=== PATIENT | male | born 1940 | race American Indian/Alaskan Native ===

== ENCOUNTER 2020-03-08 07:55 | Day surgery (SDC) | payer MEDICARE ==
[~2020-03-08 07:55] MED LIST: ACETAMINOPHEN 500 MG TAB PO SCH
[2020-03-08 09:37] LABS: Basophils # (Auto) 0.1 K/mm3 (0.0-0.1); Eosinophils # (Auto) 0.2 K/mm3 (0.0-0.4); Eosinophils % (Auto) 1.9 % (0.0-4.3); Hematocrit 38.6 % (35.5-45.6); Hemoglobin 13.3 gm/dl (11.8-15.2); Lymphocytes # (Auto) 2.2 K/mm3 (1.2-5.4); Lymphocytes % (Auto) 24.7 % (13.4-35.0); Mean Corpuscular HGB Conc 35 % (32-34); Mean Corpuscular Volume 97 fl (84-94); Monocytes # (Auto) 0.5 K/mm3 (0.0-0.8); Monocytes % (Auto) 6.2 % (0.0-7.3); Platelet Count 220 K/mm3 (140-440); Red Blood Count 3.99 M/mm3 (3.65-5.03); Red Cell Distribution Width 14.8 % (13.2-15.2)
--- NOTE | 2020-03-08 09:40 | Emergency Department Report ---
ED Male HPI - General Chief complaint: Urogenital-Male Stated complaint: PROBLEM W/PENIS Time Seen by Provider: 03/08/20 08:55 Source: patient Mode of arrival: Ambulatory Limitations: No Limitations - History of Present Illness Initial comments: Patient is 79 years old male with history of hypertension and benign prostatic hypertrophy. Patient presented to the ER complaining of swelling around his penis for the last 2 weeks getting worse in the last few days. Patient is an circumcised. Patient is complaining of pain around the glans. Patient denied any dysuria, fever, chills. MD Complaint: other (penile swelling) - Related Data Allergies Allergy/AdvReac Type Severity Reaction Status Date / Time No Known Allergies Allergy Unverified 03/08/20 08:00 ED Review of Systems ROS: Stated complaint: PROBLEM W/PENIS Other details as noted in HPI Comment: All other systems reviewed and negative Constitutional: denies: chills, fever Respiratory: denies: cough, shortness of breath, SOB with exertion Cardiovascular: denies: chest pain, palpitations Genitourinary: denies: dysuria ED Past Medical Hx - Past Medical History Previous Medical History?: Yes Hx Hypertension: Yes - Surgical History Past Surgical History?: Yes Additional Surgical History: surgery on penis. cataract - Social History Smoking Status: Current Every Day Smoker Substance Use Type: None ED Physical Exam - General Limitations: No Limitations General appearance: alert, in no apparent distress - Head Head exam: Present: atraumatic, normocephalic, normal inspection - ENT ENT exam: Present: normal exam, normal orophraynx, mucous membranes moist - Neck Neck exam: Present: normal inspection. Absent: tenderness, meningismus - Respiratory Respiratory exam: Present: normal lung sounds bilaterally - Cardiovascular Cardiovascular Exam: Present: regular rate, normal rhythm, normal heart sounds - GI/Abdominal GI/Abdominal exam: Present: soft, normal bowel sounds. Absent: distended, tenderness, guarding, rebound, rigid, mass, bruit, pulsatile mass, hernia - External exam: Present: erythema, swelling, lesions, other (Patient with significant paraphimosis and ulceration around the glans with mild greenish discharge.) ED Course Vital Signs 03/08/20 03/08/20 08:00 09:07 Temperature 98.2 F Pulse Rate 82 Respiratory 16 18 Rate Blood Pressure 136/82 [Right] O2 Sat by Pulse 96 100 Oximetry ED Medical Decision Making - Medical Decision Making Patient is 79 years old male with history of hypertension and benign prostatic hypertrophy. Patient presented to the ER complaining of swelling around his penis for the last 2 weeks getting worse in the last few days. Patient is an circumcised. Patient is complaining of pain around the glans. Patient denied any dysuria, fever, chills. I discussed the patient with Dr. Bower who came to examine the patient in the emergency room. He stated that he is taking patient to surgery. Critical care attestation.: If time is entered above; I have spent that time in minutes in the direct care of this critically ill patient, excluding procedure time. ED Disposition Clinical Impression: Paraphimosis Disposition: [id number] OP ADMIT IP TO THIS HOSP Is pt being admited?: Yes Condition: Stable
[2020-03-08 09:54] LABS: INR 1.1 (0.87-1.13)
[2020-03-08 09:55] LABS: Partial Thromboplastin Time 30.8 Sec. (24.2-36.6)
[2020-03-08] MEDS ORDERED: ALBUTEROL 2.5 MG/3 ML NEBU IH NR (10:10)
--- NOTE | 2020-03-08 10:12 | Anesthesia Consultation ---
Anesthesia Consult and Med Hx Date of service: 03/08/20 - Airway Anesthetic Teeth Evaluation: Poor (multiple missing and broken teeth with evidence of significant decay. Denies loose teeth.) ROM Head & Neck: Adequate Mental/Hyoid Distance: Adequate Mallampati Class: Class II Intubation Access Assessment: Probably Good - Pulmonary Exam CTA: No (mild scattered wheezing) - Cardiac Exam Cardiac Exam: RRR - Pre-Operative Health Status ASA Pre-Surgery Classification: ASA3, Emergency Proposed Anesthetic Plan: General - Pulmonary Hx Smoking: Yes (1/2PPD) Hx Respiratory Symptoms: Yes (occasional wheezing per patient; no rx for inhalers) SOB: No - Cardiovascular System Hx Hypertension: Yes Hx Heart Attack/AMI: No (>4mets functional capacity) Hx Percutaneous Transluminal Coronary Angioplasty (PTCA): No Hx Cardia Arrhythmia: No - Central Nervous System CVA: No - Gastrointestinal Hx Gastroesophageal Reflux Disease: No - Endocrine Hx Renal Disease: No Hx Liver Disease: No Hx Insulin Dependent Diabetes: No Hx Non-Insulin Dependent Diabetes: No Hx Thyroid Disease: No - Other Systems Hx Obesity: No - Additional Comments Anesthesia Medical History Comments: No hx anesthetic complications. Will give albuterol neb in preop.
[2020-03-08] MEDS ORDERED: fentaNYL 100 MCG/2 ML INJ IV PRN (10:13)
[2020-03-08] MEDS ORDERED: ONDANSETRON 4 MG/2 ML INJ IV PRN (10:13)
--- NOTE | 2020-03-08 10:13 | Anesthesia Day of Surgery ---
Anesthesia Day of Surgery - Day of Surgery Patient Examined: Yes Patient H&P Reviewed: Yes Patient is NPO: Yes
[2020-03-08] MEDS ORDERED: LACTATED RINGERS 1,000 ML ONE ×2 (10:17→12:15)
[2020-03-08] MEDS ORDERED: ACETAMINOPHEN 500 MG TAB ONE (10:17)
[2020-03-08] MEDS ORDERED: ALBUTEROL 2.5 MG/3 ML NEBU IH ONE (10:18)
[2020-03-08] MEDS ORDERED: BUPIVACAINE/PF (0.25%) 2.5 MG/ML 10 ML VIAL INFILTRATI ONE ×2 (10:25→11:33)
[2020-03-08] MEDS ORDERED: NEOMY 3.5 MG/BACIT 400 UNITS/POLY B 5000 UNITS OINT 15 GM TP ONE ×2 (10:26→11:33)
[2020-03-08 10:31] LABS: BUN/Creatinine Ratio 15; Blood Urea Nitrogen 19 mg/dL (9-20); Calcium 10.3 mg/dL (8.4-10.2); Hemolysis Index 4
[2020-03-08] MEDS ORDERED: SODIUM CHLORIDE P/F VIAL 10 ML 10 ML ONE (10:42)
[2020-03-08] MEDS ORDERED: BACITRACIN 50,000 UNIT VIAL ONE (10:43)
[2020-03-08] MEDS ORDERED: ceFAZolin/STERILE WATER 2 GM/20 ML SYRINGE IV NR (11:00)
[2020-03-08] MEDS ORDERED: propofoL 200 MG/20 ML VIAL IV ONE (11:03)
[2020-03-08] MEDS ORDERED: MIDAZOLAM 2 MG/2 ML INJ ONE (11:07)
[2020-03-08] MEDS ORDERED: fentaNYL 100 MCG/2 ML INJ ONE (11:07)
[2020-03-08] MEDS ORDERED: ePHEDrine SULFATE 50 MG/1 ML INJ ONE (11:21)
[2020-03-08] MEDS ORDERED: LACTATED RINGERS 1,000 ML IV SCH (11:30)
[2020-03-08] MEDS ORDERED: KETOROLAC 30 MG/1 ML INJ ONE (11:31)
[2020-03-08] MEDS ORDERED: ONDANSETRON 4 MG/2 ML INJ ONE (11:31)
[2020-03-08] MEDS ORDERED: SODIUM CHLORIDE 0.9% IRR 1,500 ML BOTTLE IR ONE (11:34)
[2020-03-08] MEDS ORDERED: BACITRACIN 50,000 UNIT VIAL IR ONE (11:40)
--- NOTE | 2020-03-08 12:30 | Post Operative Note ---
Date of procedure: 03/08/20 Pre-op diagnosis: paraphimosis bleeding Post-op diagnosis: same Findings: severe edema Procedure: circ debridement Anesthesia: GETA Surgeon: MAHAD SAVAGE Estimated blood loss: minimal Pathology: list (foreskin) Specimen disposition: to lab Condition: stable Disposition: PACU
--- NOTE | 2020-03-08 12:32 | Discharge Summary ---
Short Stay Discharge Plan Activity: other (no sex ) Weight Bearing Status: Full Weight Bearing Diet: low fat, low cholesterol, low salt Wound: open to air Special Instructions: other (remove dressing after 7 pm tonight ) Durable Medical Equipment Needed Upon Discharge: other Follow up with: LATA VANN MD [Primary Care Provider] - 3-5 Days MAHAD SAVAGE MD [Staff Physician] - 14 Days
--- NOTE | 2020-03-08 13:02 | Operative Report ---
PREOPERATIVE DIAGNOSES: Paraphimosis, severe edema and bleeding from the penis, increasing pain. POSTOPERATIVE DIAGNOSES: Paraphimosis, severe edema and bleeding from the penis, increasing pain. PROCEDURE: Debridement and circumcision. SURGEON: Dr. Araujo. ANESTHESIA: General. FINDINGS: This is a gentleman who had his penis stuck in the zipper. The paraphimosis was partially reduced and now it got back. He came to the Emergency Room. DESCRIPTION OF PROCEDURE: The patient was brought to the operating room and placed on the operating table. Following the induction of anesthesia, placed in supine position, prepped and draped in usual sterile fashion. His penis was severely edematous. Two circumferential incisions were made, but a part of it was bleeding and cracking and bleeding from the penile aspect, which was very tight. At this point, a large amount of excess skin was excised, which was edematous and some of it nonviable. At this point, hemostasis was excellent. Sutures were placed at 12, 3, and 6 o'clock position and excess skin was excised. The patient tolerated the procedure well. No significant complication. Minimal blood loss. He was brought to recovery in stable condition. JOB# [id number] MARKUS/KALYN
[2020-03-08 14:27] VITALS: BP 152/69
--- NOTE | 2020-03-08 15:46 | Post Anesthesia Evaluation ---
- Post Anesthesia Evaluation Patient Participated: Yes Airway Patent: Yes Stable Respiratory Function: Yes Nausea/Vomiting: No Temp > 96.8F: Yes Pain Manageable: Yes Adequeate Hydration: Yes Anesthesia Complications: No
--- NOTE | 2020-03-08 16:12 | Consultation ---
PREOPERATIVE DIAGNOSES: Severe paraphimosis, intermittent bleeding and pain. This is an Emergency Room consultation for paraphimosis. FINDINGS: This is a 79-year-old gentleman who we saw late last week. We partially reduced the paraphimosis, it is back. He is having intermittent bleeding and pain, cannot reduce it in the Emergency Room. All options were discussed with him even last week and he now presents for at least a dorsal slit, possibly circumcision. All risks and implications including bleeding, infection, scarring were discussed. PAST MEDICAL HISTORY: Please see ____. PHYSICAL EXAMINATION: GENERAL: He is awake, alert, in no distress. VITAL SIGNS: His respirations are normal. CARDIOVASCULAR: Regular rhythm. ABDOMEN: Soft, nondistended. GENITALIA: Severely swollen paraphimosis with a slit circumferentially on the dorsum, which is intermittently bleeding. IMPRESSION: Severe paraphimosis with intermittent bleeding, pain, for circumcision slit and other necessary procedures. All risks and implications obtained. He has informed consent. JOB# [id number] MARKUS/KALYN
== END 2020-03-08 11:01 | disposition home or self-care (01) ==
LOC: ED 07:55 → OR 11:00
PROVIDERS: ATTEND Internal Medicine
DX: N47.2 Paraphimosis (principal); N48.89 Other specified disorders of penis; I10 Essential (primary) hypertension; F17.210 Nicotine dependence, cigarettes, uncomplicated; Z98.890 Other specified postprocedural states; Z91.013 Allergy to seafood; Z79.899 Other long term (current) drug therapy
CPT/HCPCS: 36415; 54161; 80048; 85025; 85610; 85730; 86850; 86900; 86901; 88304; J0690; J1885; J2250; J2405; J2704; J3010; J7120; A6250